=== PATIENT | male | born 1975 | race Two or more races ===

== ENCOUNTER 2024-01-28 08:44 | Inpatient (IN) | payer OTHER ==
[~2024-01-28] VITALS: Ht 185.4 cm; Wt 0.5 kg
[2024-01-28] MEDS ORDERED: 0.9 % SODIUM CHLORIDE 1,000 ML IV STA (09:54)
[2024-01-28 10:48] LABS: PH,URINE 6.5 (5.0-8.0); URINE APPEARANCE Clear; URINE BILIRRUBIN Negative (NEGATIVE); URINE BLOOD Negative; URINE COLOR Yellow; URINE GLUCOSE Negative (NEGATIVE); URINE KETONE Negative (NEGATIVE); URINE LEUKOCYTE Negative; URINE NITRATE Negative; URINE PROTEIN Negative (NEGATIVE); URINE UROBILINOGEN 0.2 E.U./dl
[2024-01-28 10:50] LABS: URINE BACTERIA 18.8 uL (0.0-1933)
[2024-01-28 10:57] LABS: URINE EPITHELIAL CELLS 0.4 uL (0.0-38.8); URINE RBC 0.9 uL (0.0-20.8); URINE WBC 1.2 uL (0.0-23.2)
[2024-01-28 11:16] LABS: HEMATOCRIT 26.7 % (39.0-48.0); MEAN CELL VOLUME 70.1 fL (80.0-100.00); MEAN CORPUSCULAR HGB CONC 30.2 g/dl (32.0-36.0); PLATELET COUNT 343 K/uL (150-450); RED CELL DISTRIBUTION WIDTH 18.6 % (11.5-14.5)
[2024-01-28 11:32] LABS: INR 0.97; PROTHROMBIN TIME 10.6 SECONDS (9.0-11.5)
[2024-01-28 11:45] LABS: CALCIUM 9.3 mg/dL (8.5-10.1); CREATININE SERUM 1.04 mg/dL (0.70-1.30); GFR 76.22; POTASSIUM 3.56 mEq/L (3.5-5.1)
[2024-01-28] MEDS ORDERED: SODIUM CHLORIDE 0.45 % 1,000 ML IV SCH (13:45)
[2024-01-28] MEDS ORDERED: FAMOtidine 20 MG TABLET PO SCH (17:00)
[2024-01-28 17:32] VITALS: BP 156/71; O2SAT 100
[2024-01-29 00:23] VITALS: BP 141/72; O2SAT 96
[2024-01-29 08:00] VITALS: BP 132/73; O2SAT 100
[2024-01-29] MEDS ORDERED: SOD FERRIC GLUC COMPLX/SUCROSE 62.5 MG in 0.9 % SODIUM CHLORIDE 50 ML IV SCH (09:00)
[2024-01-29 11:41] LABS: HEMATOCRIT 29.5 % (39.0-48.0); HEMOGLOBIN 9.3 g/dL (13-16.00); MEAN CELL VOLUME 72.3 fL (80.0-100.00); MEAN CORPUSCULAR HEMOGLOBIN 22.8 pg (27.00-32.0); MEAN CORPUSCULAR HGB CONC 31.6 g/dl (32.0-36.0); PLATELET COUNT 304 K/uL (150-450); RED BLOOD COUNT 4.08 M/uL (4.00-6.00); RED CELL DISTRIBUTION WIDTH 20.2 % (11.5-14.5)
[2024-01-30 02:28] VITALS: BP 108/67; O2SAT 97
[2024-01-30 08:00] VITALS: BP 127/78; O2SAT 99
[2024-01-30 10:55] LABS: HEMOGLOBIN 10.3 g/dL (13-16.00); MEAN CORPUSCULAR HEMOGLOBIN 23.4 pg (27.00-32.0); PLATELET COUNT 298 K/uL (150-450); RED BLOOD COUNT 4.39 M/uL (4.00-6.00); RED CELL DISTRIBUTION WIDTH 19.7 % (11.5-14.5)
[2024-01-30 17:07] VITALS: BP 131/80; O2SAT 98
[2024-01-30] MEDS ORDERED: NA PHOS,M-B/NA PHOS,DI-BA 1 BOTTLE ENEMA RECTAL SCH (21:00)
[2024-01-31] MEDS ORDERED: NA PHOS,M-B/NA PHOS,DI-BA 1 BOTTLE ENEMA RECTAL SCH (06:00)
[2024-01-31] MEDS ORDERED: CEFTRIAXONE SODIUM 2,000 MG VIAL IV ONE (10:00)
[2024-01-31] MEDS ORDERED: METRONIDAZOLE/SODIUM CHLORIDE 500 MG/100 ML PIGGYBACK IV ONE (10:00)
[2024-01-31] MEDS ORDERED: BUPIVACAINE HCL 30 ML VIAL IJ ONE (10:00)
[2024-01-31] MEDS ORDERED: DIBUCAINE 30 GM TUBE RECTAL ONE (10:00)
[2024-01-31] MEDS ORDERED: HEMOSTATIC MATRIX 1 KIT KIT TOP ONE (10:00)
[2024-01-31 10:04] VITALS: BP 142/84; O2SAT 100
[2024-01-31] MEDS ORDERED: POLYETHYLENE GLYCOL 3350 17 GM BLIST.PACK PO SCH (11:38)
[2024-01-31] MEDS ORDERED: BENZOCAINE/MENTHOL 90 ML BOTTLE TOP ONE (11:45)
[2024-01-31] MEDS ORDERED: MORPHINE SULFATE 4 MG/ML CARTRIDGE IV PRN (11:45)
[2024-01-31] MEDS ORDERED: OxyCODONE HCL 5 MG TABLET (ROXICODONE) PO SCH (12:00)
[2024-01-31 18:06] VITALS: BP 138/71; O2SAT 98
[2024-02-01 03:31] VITALS: BP 101/55; O2SAT 98
[2024-02-01 10:24] VITALS: BP 143/72; O2SAT 99
[2024-02-01] MEDS ORDERED: OXYCODONE HCL5 MG PO (12:27)
[2024-02-01] MEDS ORDERED: INTEGRA PLUS C1 EACH PO (12:30)
== END 2024-02-01 14:19 | disposition home or self-care (01) | DRG 348 ==
LOC: ER 08:46 → SURH 13:49 → SEC-K 13:49 → SURH 16:04
PROVIDERS: Emergency Medicine; ADMIT Surgery; ATTEND Surgery
PROC: 30233N1 Transfusion of Nonautologous Red Blood Cells into Peripheral Vein, Percutaneous Approach (ICD-10-PCS; 2024-01-28)
PROC: 0DBQ7ZZ Excision of Anus, Via Natural or Artificial Opening (ICD-10-PCS; 2024-01-31)
PROC: 0D5Q7ZZ Destruction of Anus, Via Natural or Artificial Opening (ICD-10-PCS; 2024-01-31)
PROC: 0DJD8ZZ Inspection of Lower Intestinal Tract, Via Natural or Artificial Opening Endoscopic (ICD-10-PCS; 2024-01-31)
PROC: 3E0T3BZ Introduction of Anesthetic Agent into Peripheral Nerves and Plexi, Percutaneous Approach (ICD-10-PCS; 2024-01-31)
PROC: 06BY0ZC Excision of Hemorrhoidal Plexus, Open Approach (ICD-10-PCS; principal; 2024-01-31 07:00)
DX: K64.8 Other hemorrhoids (principal); K62.5 Hemorrhage of anus and rectum; K62.89 Other specified diseases of anus and rectum